=== PATIENT | female | born 1995 | race Caucasian/White ===

== ENCOUNTER 2022-06-06 16:55 | Inpatient (IN) | payer BC, SELFPAY ==
[2022-06-06 17:19] VITALS: BMI 29.0
[2022-06-06 17:24] VITALS: PULSE 95; O2SAT 98
[2022-06-06 17:25] VITALS: BP 126/87; PULSE 102
[2022-06-06 18:19] LABS: SARS PCR* Negative SARS-CoV-2 (Negative)
[2022-06-06] MEDS: miSOPROStoL 25 MCG/0.25 TABLET PO ×3 (18:22→22:30)
[2022-06-06 18:25] VITALS: RESP 16; TEMP 36.6
[2022-06-06 18:28] LABS: Basophils Absolute Auto 0.02 K/uL (0.00-0.30); Basophils Percent Auto 0.2 % (0.0-3.0); Eosinophils Absolute Auto 0.17 K/uL (0.00-0.50); Eosinophils Percent Auto 1.8 % (0.0-7.0); Hematocrit 36.1 % (33.0-51.0); Hemoglobin* 12.8 gm/dL (12.0-16.0); Immature Granulocytes Abs Auto 0.05 K/uL (0.00-0.30); Immature Granulocytes Pct Auto 0.5 %; Lymphocytes Percent Auto 10.4 % (20-44); Mean Corpuscular HGB Conc 36 gm/dL (32-36); Mean Corpuscular Hemoglobin 32 pg (26-34); Mean Corpuscular Volume 89 fL (80-100); Monocytes Percent Auto 6.9 % (0.0-11.0); Neutrophils Percent Auto 80.2 % (42.0-72.0); Platelet Count* 191 K/uL (140-440); RDW Coefficient of Variation % 13.8 % (11.5-15.5); Red Blood Count 4.04 m/uL (4.00-5.20); White Blood Count* 9.53 K/uL (4.50-11.00)
[2022-06-06 18:29] LABS: Slide Review Reflex No
[2022-06-06 19:53] VITALS: BP 133/77; PULSE 83; RESP 20; O2SAT 99
--- NOTE | 2022-06-06 20:35 | P.OBHP_ITS ---
OB - H&P: HPI Labor/Induction History of Present Illness Time Seen by Provider: 20:35 Date Seen: 06/06/22 Chief Complaint: The patient is a 26 year old 1 para 0 at 40.1 weeks gestation by LMP, who presents for induction of labor. Chief complaint: Maternity : 1 Para: 0 Date of last menstrual period: 08/30/21 Estimated date of delivery: 06/06/22 Gestational age based on last menstrual period: 40 Indications for induction: other (evolving cholestasis and marginal cord. ) Narrative: Nicolette Allen is a 26 year old female Patient presented Saturday with extreme itching of palms/feet and PUPPS rash on abdomen. She has known marginal cord insertion (normal growth). Given likely progressing cholestasis and marginal cord, we elected to proceed with induction of labor at term. She denies contractions, leaking of fluid, bleeding. History of Present Dating criteria: based on LMP care: good care Ultrasounds: abnormal US findings Abnormal ultrasound findings: Marginal cord insertion. Monitored growth which has been appropriate. complications comment: Itching concerning for cholestasis, bile acids pending. Medical complications: none Labs Blood type: AB (+) positive Rubella: immune RPR/VDLR: nonreactive GBS status: negative HBsAG: negative Review of Systems Status of ROS: Reports: 10 or more systems reviewed and unremarkable except as noted in History and below Const: Denies: fever, chills or fatigue Eyes: Denies: change in vision or blurry vision ENMT: Denies: neck pain Cardio: Denies: chest pain or shortness of breath with exertion Resp: Denies: shortness of breath GI: Denies: abdominal pain, nausea or vomiting : Denies: blood in urine or vaginal bleeding Musculo: Denies: back pain or neck pain Integ/Breast: Reports: rash, itching and redness Neuro: Denies: headache Endo: Denies: excessive urination or fatigue Meds Home Medications and Allergies Allergies Allergy/AdvReac Type Severity Reaction Status Date / Time No Known Allergies Allergy Verified 06/06/22 17:40 OB - H&P: Exam Physical Exam: Vital signs: Temp Pulse Resp BP Pulse Ox 97.8 F 83 20 133/77 99 06/06/22 18:25 06/06/22 19:53 06/06/22 19:53 06/06/22 19:53 06/06/22 19:53 Constitutional: Constitutional: no acute distress Routine HEENT Exam: Head: Present atraumatic and normal inspection Routine Neck Exam: Neck: Present full ROM Detailed Neck Exam: Thyroids: Thyroid: Present normal Routine Respiratory Exam: Respiratory: Present CTA bilaterally; Absent crackles or rales Routine Cardiovascular Exam: Cardiovascular: RRR, S1 and S2 Detailed Abdominal Exam: Bowel sounds: hypoactive Detailed Labor and Delivery Exam: Patient Gravid: Yes Dilation (cm): 2 Effacement (%): 50 Contraction frequency (min): 5 Tachysystole: No Contraction intensity: Mild Fetus (Single): Heart Rate Baseline: 145 Monitor Accelerations: Present Monitor Decelerations: None Metal Caster Variability: Moderate (6-25) Routine Extremities Exam: Extremities: Present full ROM; Absent calf tenderness Comments: mild edema Routine Skin Exam: Present intact Comments: rash an erythema on abdomen. Routine Neurological Exam: Present alert, oriented X3 and hearing grossly intact OB - Results Labs Labs: Short CBC 06/06/22 Range/Units 18:15 WBC 9.53 (4.50-11.00) K/uL Hgb 12.8 (12.0-16.0) gm/dL Hct 36.1 (33.0-51.0) % Plt Count 191 (140-440) K/uL OB - Problem Based A/P Additional Plan (1) Term : Status: Acute Plan: Here for induction of labor . Elects to start with cytotec for cervical ripening. Plan on Pitocin and AROM tomorrow PRN. (2) Marginal insertion of umbilical cord: Status: Acute Plan: marginal cord insertion, growth has been appropriate. Most recent growth showed 77%ile. (3) Itching: Status: Acute Plan: concerning for cholestasis given itching no hands/soles. Also has pruritic rash on abdomen likely PUPPS. Initial LFTs within normal limits. (4) PUPP (pruritic urticarial papules and plaques of ): Status: Acute Plan - Will allow hydrocortisone for rash prn Delivery/Labor/Induction Plan Plan: induction Induction method: per misoprostol protocol
[2022-06-06] MEDS: HYDROCORTISONE 2.5% CREAM 1 APPLIC TOPICAL (21:30)
[2022-06-06] MEDS: hydrOXYzine pamoate 25 MG CAPSULE 100 MG PO (22:30)
[2022-06-06 23:48] VITALS: BP 131/70; PULSE 79; PULSE 82; RESP 16; TEMP 36.4; O2SAT 98
[2022-06-07] VITALS (57 sets, daily range): BP systolic 103–172; BP diastolic 52–80; PULSE 72–141; RESP 16–20; TEMP 36.8–37.7; O2SAT 96–100
[2022-06-07] MEDS: LACTATED RINGERS 1000 ML 1,000 ML 500 ML IV ×2 (02:42→04:52)
[2022-06-07] MEDS: fentaNYL 100 MCG/2 ML inj IVP ×3 (05:04→07:50)
[2022-06-07] MEDS: LACTATED RINGERS 1000 ML 1,000 ML 125 ML IV ×4 (11:13→19:17)
--- NOTE | 2022-06-07 12:59 | P.OBPN_ITS ---
Subjective Time Seen by Provider: 12:59 Date Seen: 06/07/22 Narrative: Patient received 3 doses of cytotec overnight. She SROM'ed at 0245 and progressed well. She was a reducible anterior lip at around 10 am and started pushing. Had some periods of laboring down/resting. Several positions were tried. Had Dr. Rizo assess to confirm OA position. Discussed options with patient given maternal exhaustion. Elected to have epidural placed and rest/labor down and restart pushing. At this time patient is +2 station. Epidural was placed without incident. Patient was unable to empty bladder prior to placement and will require oneil placement when comfortable. Objective Exam: Painful with contractions. Contractions palpate strong. Baby is 2+ station, small caput. Vital Signs: Last Vital Signs Temp 98.4 F 06/07/22 11:56 Pulse 116 H 06/07/22 12:57 Resp 18 06/07/22 10:32 BP 128/79 06/07/22 12:57 Pulse Ox 100 06/07/22 12:56 Pelvic Exam Dilation (cm): 10 Effacement (%): 100 Station: +2 Comments: small caput Contractions Monitor mode: External Contraction Frequency: 1-2 Contraction pattern: Regular Contraction intensity: Strong/Firm Pitocin Rate (mU/min): 0 Assessment Assessment: active labor Station: +2 Amniotic Membrane Status: SROM Status: Category ll Heart Rate Baseline: 145 Packing Attendant Variability: Moderate (6-25) Monitor Accelerations: Present Monitor Decelerations: Variable Plan Plan: - rest and labor down with epidural - resume pushing when ready - Anticipate
[2022-06-07] MEDS: fentaNYL 250 MCG/5 ML inj 100 MCG EPIDURAL (13:00)
[2022-06-07] MEDS: ROPIVACAINE 0.2% 100 ml 100 ML 12 MG EPIDURAL (13:08)
[2022-06-07] MEDS: LIDOCAINE 2% (PF) 5 ML VIAL EPIDURAL (13:08)
--- NOTE | 2022-06-07 13:15 | P.ANBPRC_ITS ---
PFSH PFS Social History Smoking Status: Never smoker Meds Home Medications and Allergies Home Medications Medication Instructions Recorded Confirmed Type No Known Home Medications 06/07/22 06/07/22 History Allergies Allergy/AdvReac Type Severity Reaction Status Date / Time No Known Allergies Allergy Verified 06/06/22 17:40 Results Labs Labs: Laboratory Results - last 24 hr 06/06/22 06/06/22 17:04 18:15 WBC 9.53 RBC 4.04 Hgb 12.8 Hct 36.1 MCV 89 MCH 32 MCHC 36 RDW Coeff of Cristian 13.8 Plt Count 191 Neut % (Auto) 80.2 H Lymph % (Auto) 10.4 L [place] % (Auto) 6.9 Eos % (Auto) 1.8 Baso % (Auto) 0.2 Neut # (Auto) 7.60 H Lymph # (Auto) 1.00 [place] # (Auto) 0.70 Eos # (Auto) 0.17 Baso # (Auto) 0.02 SARS-CoV-2 (PCR) Negative SARS-CoV-2 Blood Type AB Positive Antibody Screen NEGATIVE Vital Signs Vital Signs: Last Vital Signs Temp 98.4 F 06/07/22 11:56 Pulse 97 06/07/22 13:12 Resp 18 06/07/22 10:32 BP 129/57 L 06/07/22 13:12 Pulse Ox 100 06/07/22 12:56 Weight: 83.971 kg Height: 170.18 cm Anesthesia Procedures Epidural Insertion Patient Location: OB Start Time: 12:30 Stop Time: 13:30 Start Date: 06/07/22 Stop Date: 06/07/22 Reason for Block: primary anesthetic Patient Position: sitting Performed By: Rajesh Arenas Preanesthetic Checklist: IV checked, risks and benefits discussed, surgical consent, monitors and equipment checked, pre-op evaluation, timeout performed and anesthesia consent Prep: chlorhexidine gluconate Monitoring: blood pressure monitoring, property assessment monitor, continuous pulse oximetry and heart rate Approach: midline Vertebral Space: lumbar (1-5) Needle Type: Tuohy needle Injection Technique: continuous catheter Needle gauge: 17 Needle Length (cm): 10 cm Needle Insertion Depth (cm): 6 Catheter Gauge: 19 Catheter Type: multi-orifice Catheter at skin depth (cm): 12 Test Dose Result: negative and lidocaine 1.5% with epinephrine 1 to 200,000 Events: other
[2022-06-07] MEDS: ONDANSETRON 2 MG/ML inj 4 MG IV (15:50)
--- NOTE | 2022-06-07 16:55 | PM.OBCN1 ---
OB - CN: HPI Date of Consult Time Seen by Provider: 16:15 Date Seen: 06/07/22 Patient: Belinda Patient Consult date: 06/07/22 Requesting Physician: Taylor Vasquez MD Primary Care Provider: Taylor Vasquez MD Consult Narrative Reason for consult: arrest of labor Narrative: The patient is a 26 year old G 1 P 0 at 40 2/7 weeks gestation that was admitted to the Center on 06/06/22 for IOL in the setting of suspected ICP, marginal cord insertion, term gestation. Patient admitted and treated with 2 doses of Cytotec and had normal progression of labor. Patient was unmedicated, achieved 10cm cervical dilation at around 10am today, she pushed for about 2 hours after [address] time Dr[address] Vasquez thought called me to assess position and to try a manual version since they believed baby was OT. At that time patient my evaluation showed that baby was OA a bit asynclitic towards maternal right hip. I recommended for them to try epidural for pain management to see if now that baby had turned and with adequate pain management she could relax and push more effectively. Epidural was placed and then she was left to labor down for about 1 hour. She then resumed pushing and pushed for another 1 1/2 hour w/o significant descent. I was called in for re evaluation. I checked patient at around 4:15pm and station unchanged. Recommendation was given for delivery. History of Present Dating criteria: based on LMP care: good care Ultrasounds: normal 1st trimester US and normal mid trimester US complications comment: Itching concerning for cholestasis, bile acids pending. History History 1 Elective abortions Para 0 Spontaneous abortions Hx # Term Pregnancies Ectopic pregnancies Hx # Pregnancies Multiple births Number of Living Children 0 Labs Blood type: AB (+) positive Rubella: immune RPR/VDLR: nonreactive GBS status: negative HBsAG: negative OB Labs: Lab Assessment Start: 06/06/22 17:04 Freq: ONCE Status: Complete Protocol: PC.OBGBS Activity Type Activity Date Activity User E-sign Co-sign Detail Recorded Client Recorded Date Recorded By Document 06/06/22 17:21 DD [id number] 06/06/22 17:21 DD 06/06/22 17:21 Lab Assessment GBS Negative Previous with Invasive GBS No Does Patient Meet Criteria No No Treatment Needed OK Maternal Blood Type AB Maternal RH Factor Positive Evaluate Maternal Rubella Immune Status Immune Hepatitis B Surface Antigen Negative Maternal HIV Status Negative Maternal Syphillis (RPR) Status Negative Are Labs Available Yes PFSH PFSH Social History Smoking Status: Never smoker Meds Home Medications and Allergies Home Medications Medication Instructions Recorded Confirmed Type No Known Home Medications 06/07/22 06/07/22 History Allergies Allergy/AdvReac Type Severity Reaction Status Date / Time No Known Allergies Allergy Verified 06/06/22 17:40 OB - H&P: Exam Physical Exam: Vital signs: Temp Pulse Resp BP Pulse Ox 99.1 F 114 H 16 116/53 L 100 06/07/22 15:37 06/07/22 16:39 06/07/22 14:35 06/07/22 16:39 06/07/22 12:56 Narrative: Cervix: 10cm/100%/vx/-1, caput to +1 NST: 150bpm/positive accelerations/variable decelerations, currently improved but at 4pm these were deep and repetitive/minimal variability/tachysystolic. OB - Results Labs Labs: Short CBC 06/06/22 Range/Units 18:15 WBC 9.53 (4.50-11.00) K/uL Hgb 12.8 (12.0-16.0) gm/dL Hct 36.1 (33.0-51.0) % Plt Count 191 (140-440) K/uL OB - CN: A/P Assessment and Plan (1) Term : Status: Acute (2) Marginal insertion of umbilical cord: Status: Acute (3) Itching: Status: Acute (4) PUPP (pruritic urticarial papules and plaques of ): Status: Acute Plan 26 y/o G1 with IUP at 40 2/7 weeks with arrest of descent. Recommendation given for section at this time. Discussed how procedure is performed. Discussed risks of surgery such as bleeding and needing blood transfusions, infection, damage to nearby organs, blood clots. Discussed interventions that we do to decrease risks such as prophylactic antibiotics, compression stockings etc... Discussed how recovery is different between a vaginal vs a delivery. Informed consent signed and will proceed with surgery as soon as anesthesia team arrives to hospital.
--- NOTE | 2022-06-07 17:19 | PM.OBPNL ---
Subjective Time Seen by Provider: 16:00 Date Seen: 06/07/22 Narrative: Patient pushed x 2.5 hours without making significant change. We placed epidural, labored down x 1 hour and then resumed pushing. Patient pushed for an additional 1.5 hours without significant change despite several position changes. OB was consulted and recommended proceeding with primary due to arrest of descent. Please see their note for details. Objective Vital Signs: Last Vital Signs Temp 99.7 F H 06/07/22 17:02 Pulse 111 H 06/07/22 17:14 Resp 18 06/07/22 17:02 BP 131/71 06/07/22 17:14 Pulse Ox 100 06/07/22 12:56 Pelvic Exam Dilation (cm): 10 Effacement (%): 100 Station: +2 Contractions Monitor mode: External Contraction pattern: Regular Contraction intensity: Strong/Firm Pitocin Rate (mU/min): 0 Assessment Assessment: active labor Station: +2 Amniotic Membrane Status: SROM Status: Category ll Heart Rate Baseline: 145 Monitor Accelerations: Present Monitor Decelerations: Variable Plan Plan: - proceed with at this time
[2022-06-07] MEDS: CEFAZOLIN 2 GM INJ IVP (17:29)
[2022-06-07] MEDS: TRANEXAMIC ACID 100 MG/ML INJ 1000 MG IV (17:30)
[2022-06-07] MEDS: AZITHROMYCIN 500 MG in 0.9 % SODIUM CHLORIDE 250 ml 250 ML 255 MG IVPB (17:34)
[2022-06-07] MEDS: miSOPROStoL 800 MCG/4 TABLET PR (17:49)
--- NOTE | 2022-06-07 18:22 | PM.OBPRCCS ---
Procedure Pre-op/Post-op diagnoses: Pre-Op/Post-Op Diagnoses Pre Operative Diagnosis: 1. Intrauterine at 40 2/7 weeks 2. Arrest in descent 3. Suspected ICP Post Operative Diagnosis: 1. Same, now delivered 2. PPH, uterine atony Procedure Done: only Procedure Details: Procedures Operation Date: 06/07/22 17:45 Actual Procedure Side Surgeon p Section Saundra Ordonez MD Estimated blood loss (mL): 1,340 Disposition: floor Anesthesia type: Epidural Complications: hemorrhage due to uterine atony Narrative: NAME OF PROCEDURE: Primary low transverse section. ANESTHESIA: Epidural COMPLICATIONS: PPH, uterine atony QUANTITATIVE BLOOD LOSS: 1340mL DRAINS: Dooley to gravity. FINDINGS: Live-born female infant, vertex presentation, Apgars 9 and 9 at 1 and 5 minutes respectively. weight 8 lb 14 oz. PROCEDURE: After obtaining informed consent, the patient was taken to the operating room where epidural anesthesia was confirmed to be adequate. She was prepared and draped in the normal sterile fashion in the dorsal supine position with a leftward tilt. A Pfannenstiel skin incision was made with a scalpel about 2 cm above symphysis pubic bone, 8-10 cm in length. This incision was carried down to the underlying layer of fascia with the Bovie and scalpel. The fascia was incised in the midline and the incision extended laterally. The rectus muscles were then in the midline. The Jaya O retractor was then placed into the incision. The lower uterine segment was then incised in a transverse fashion with the scalpel. Upon entry into the uterus, clear amniotic fluid was noted. The uterine incision was extended cephalo caudally with blunt finger fractionation. head was brought up to incision and with fundal pressure head delivered and there was a nuchal cord that was reduced, followed by delivery of the rest of the body atraumatically. The cord was doubly clamped and cut after about 30 seconds of delayed cord clamping and the infant was handed off the field to warm for evaluation. The placenta was delivered spontaneously with umbilical cord traction and fundal massage. The uterus was cleared of all clots and debris. Uterine atony identified and treated with: 1g of TXA, 1 dose of Hemabate and Methergine and 800mcg of rectal Cytotec. The uterine incision was reapproximated in a running locking fashion with a 0 Vicryl suture. A 2nd layer of the same suture was used to imbricate in horizontal fashion. There was some bleeding noted from the left corner of incision and utilizing Chromic 2-0 in a figure of 8 hemostasis was achieved. The gutters were inspected and cleared of blood clot. All instruments and retractors were removed. The subfascial tissues were carefully inspected and hemostasis assured. The fascia was reapproximated in a running fashion with a looped 0 Vicryl suture. The subcutaneous tissues were inspected and hemostasis was assured. The subcutaneous fat layer was reapproximated with interrupted sutures of 3-0 Vicryl. The skin was closed in a subcuticular fashion with 4-0 Monocryl. LiquiBand and dressing were applied. The patient tolerated the procedure well. Sponge, lap, needle, and instrument counts were reported as correct x2. The patient was taken to the recovery room, awake, and in stable condition. She did receive 2 grams of IV Ancef and 500mg of Azithromycin preoperatively.
[2022-06-07] MEDS: KETOROLAC 30 MG/ML inj IVP (18:42)
[2022-06-07] MEDS: LOPERAMIDE HCL 2 MG CAPSULE 4 MG PO (18:45)
--- NOTE | 2022-06-07 18:56 | P.NB_ITS ---
Nerve Block Nerve Block Time Seen by Provider: 18:35 Date Seen: 06/07/22 Type of block requested by surgeon for post-operative analgesia: TAP Side: bilateral Time out performed: Yes Verification of patient name: Yes Verification of date of : Yes Site marking: not applicable Name of person performing procedure: nick Continuous monitoring Was continuous monitoring of O2 sat, B/P, cardiac rehabilitation specialist, recorded every 15 minutes?: Yes Procedure Checklist: sterile prep, needles and gloves Ultrasound guided. Images saved: Yes Medications given in 5ml increments after negative aspiration: Marcaine %: 0.25 mL: 30 Needle gauge: 20 and Exparel mL: 10 Patient tolerated procedure well: Yes Block Charges Block Charge (with Pro Fee): TAP Bilateral Use of Ultrasound Machine for Block: Yes- US Guidance/pain block
--- NOTE | 2022-06-07 18:57 | W.ANESCHARGE ---
Anesthesia Charges Start Date/Time Anesthesia Start Date: 06/07/22 Anesthesia Start Time: 17:19 Stop Date/Time Anesthesia Stop Date: 06/07/22 Anesthesia Stop Time: 18:43 Summary Emergency: BINDING MACHINE OPERATOR
[2022-06-07] MEDS: diphenhydrAMINE 50 MG/ML inj 12.5 MG IVP ×2 (22:35→22:47)
[2022-06-08] VITALS (23 sets, daily range): BP systolic 100–116; BP diastolic 61–98; PULSE 80–110; RESP 14–18; TEMP 36.8–37.1; O2SAT 95–98
[2022-06-08] MEDS: hydrOXYzine pamoate 25 MG CAPSULE 100 MG PO (00:39)
[2022-06-08] MEDS: KETOROLAC 30 MG/ML inj IVP ×4 (00:40→19:59)
[2022-06-08] MEDS: ACETAMINOPHEN 500 MG TABLET 1000 MG PO (03:40)
[2022-06-08 05:41] LABS: Hemoglobin* 8.4 gm/dL (12.0-16.0)
--- NOTE | 2022-06-08 07:48 | PM.OBPNCS1 ---
OB - PN: A/P Assessment and Plan (1) Term : Status: Acute (2) Marginal insertion of umbilical cord: Status: Acute (3) Itching: Status: Acute (4) PUPP (pruritic urticarial papules and plaques of ): Status: Acute Plan Plan: routine postop care Comments: Assessment/Plan G 1 P 1 status post primary complicated by PP hemorrhage. 1. ?Continue route PP cares 2. ?. ?May see if desired 3. ?Anticipate discharge home tomorrow or the following day per pt preference 4. ?Acute anemia. ?Iron supplement ordered 5. Itching, likely r/t medications given in OR. -may have Vistaril PRN for itching 6. Labia extremely edematous bilaterally. Likely r/t prolonged pushing and laboring down. -Will continue with catheter at this time. Reassess this afternoon. Encouraged to keep ice packs on. OB - PN: Subj Subjective Time Seen by Provider: 07:48 Date Seen: 06/08/22 Patient comments: no complaints, pain well controlled, tolerating diet and flatus present [place] status: doing well feeding status: exclusively Narrative: Nicolette is a 26 y.o. G 1 P 1 who was admitted to [facility] & [facility] for IOL for cholestasis/PUPPS. ?She had an complicated by PP hemorrhage. ? The patient feels well overall. She is having a fair amount of itching. This feels different than what she was feeling in - feels all over. ?Benydryl and vistrail given last night, only the Vistaril provided relief. The pain is well controlled with current medications. ?She has no new complaints aside from the itcing. ?She is breast feeding and reports things are overall going well, though th ebaby was sleepy with the last feed.? the patient has done well.? Vitals have been stable.? She has remained afebrile.? Has a good appetite, is tolerating a general diet. ?She has a oneil catheter in place, and the nurses are requesting to continue this r/t edema of the labia.? She is passing gas and has not had a bowel movement.? She has not been up ambulating.? Has Small amount of rubra lochia. OB - PN: Obj Exam Physical Exam: Vital signs: Temp Pulse Resp BP Pulse Ox O2 Del Method 98.2 F 80 16 108/98 H 97 Room Air 06/08/22 07:33 06/08/22 07:33 06/08/22 07:33 06/08/22 07:33 06/08/22 07:33 06/08/22 07:33 Narrative: VSS. Afebrile GENERAL APPEARANCE: ?normal affect, alert, no distress MOOD: ?appropriate HEENT: normocephalic, neck supple, full ROM CHEST: ?Symmetrical chest wall movement. ?Normal respiratory effort. ?Clear to auscultation HEART: ?regular rate and rhythm ABDOMEN: ?soft, non-tender. Uterine fundus is firm, at Umbilicus, Midline and is appropriate for the stage of recovery. ?Bowel sounds present. : Labia extremely edematous bilaterally EXTREMITIES: ?normal and +1 edema SKIN: warm, dry. Dressing on, clean/dry/intact. No signs of infection noted. OB - PN: Obj Data Labs Labs: Laboratory Results - last 24 hr 06/08/22 05:35 Hgb 8.4 L
--- NOTE | 2022-06-08 12:05 | SUR.PHASEI ---
Late entry for primary nurse. Verified time out of PACU with Alanna Port. Fco Arenas INTELLIGENCE SPECIALIST, agreed with 20 min recovery time. Patient met all milestones. Jason PETTIT
[2022-06-08] MEDS: SODIUM CHLORIDE 0.9 % (FLUSH) 10 ML SYRINGE IVF (20:00)
[2022-06-08] MEDS: LANOLIN CREAM 1 APPLIC TOPICAL (21:35)
[2022-06-09] MEDS: ACETAMINOPHEN 500 MG TABLET 1000 MG PO ×2 (03:47→23:30)
[2022-06-09] MEDS: IBUPROFEN 600 MG TABLET PO ×3 (07:34→20:38)
[2022-06-09] MEDS: FERROUS SULFATE 325 MG TABLET PO (07:35)
--- NOTE | 2022-06-09 07:46 | P.OBPN_ITS ---
OB - PN: A/P Assessment and Plan (1) Term : Status: Acute (2) Marginal insertion of umbilical cord: Status: Acute (3) Itching: Status: Acute (4) PUPP (pruritic urticarial papules and plaques of ): Status: Acute Plan day: 2 Plan: routine postop care Comments: Assessment/Plan G 1 P status post primary , complicated by PP hemorrhage. 1. ?Continue routine PP cares 2. ?. ?Having some difficulties and supplementing with donor milk as needed. May see if desired 3. ?Anticipate discharge home tomorrow. 4. ?Acute anemia. ?Denies any dizziness w/ ambulation. Iron supplement ordered yesterday 5. Edematous labia. Catheter has remained in placed since yesterday. Will remove today and monitor for ability to void. OB - PN: Subj Subjective Time Seen by Provider: 07:46 Date Seen: 06/09/22 Interval history: Nicolette is a 26 y.o. who was admitted to [facility] & [facility] for IOL for cholestasis. ?She had an which was complicated by PP hemorhage. ? Patient comments: no complaints, pain well controlled, tolerating diet and flatus present [place] infant status: [place] feeding status: exclusively (supplementing with donor milk as needed) Narrative: The patient feels well. ?The pain is well controlled with current medications. ?She has no new complaints. ?She is breast feeding and reports things have been somewhat of a struggle.? Baby has been somewhat sleepy, and not latching well. She has some trauma to the right nipple. She has been supplementing with donor milk. the patient has done well.? Vitals have been stable.? She has remained afebrile.? Has a good appetite, is tolerating a general diet. ?Likely r/t pushing and laboring down, her labia are quite swollen. The edema is somewhat decreased since yesterday. Her oneil has remained in placed r/t to this. She is passing gas and has not had a bowel movement.? She did ambulate a few times yesterday and denies any dizziness.? Has Small amount of rubra lochia. OB - PN: Obj Exam Physical Exam: Vital signs: Temp Pulse Resp BP Pulse Ox O2 Del Method 98.8 F 100 18 112/71 98 Room Air 06/08/22 22:25 06/08/22 22:25 06/08/22 22:25 06/08/22 22:25 06/08/22 22:25 06/08/22 22:25 Narrative: VSS. Afebrile GENERAL APPEARANCE: ?normal affect, alert, no distress MOOD: ?appropriate HEENT: normocephalic, neck supple, full ROM CHEST: ?Symmetrical chest wall movement. ?Normal respiratory effort. ?Clear to auscultation HEART: ?regular rate and rhythm ABDOMEN: ?soft, non-tender. Uterine fundus is firm, at Umbilicus, Midline and is appropriate for the stage of recovery. ?Bowel sounds present. : Labia very edematous, small decreased since yesterday EXTREMITIES: ?normal and +1 edema SKIN: warm, dry. Dressing on, clean/dry/intact. No signs of infection noted. Dressing to be removed today.
[2022-06-09 07:54] VITALS: BP 117/73; PULSE 80; RESP 16; TEMP 36.9; O2SAT 97
[2022-06-09] MEDS: DOCUSATE SODIUM 100 MG CAPSULE PO (14:33)
[2022-06-09 16:30] VITALS: BP 115/76; PULSE 79; RESP 16; TEMP 36.8; O2SAT 97
[2022-06-09 23:30] VITALS: BP 115/72; PULSE 88; RESP 18; TEMP 36.5; O2SAT 97
[2022-06-10] MEDS: IBUPROFEN 600 MG TABLET PO ×2 (02:27→09:16)
[2022-06-10 09:07] VITALS: BP 115/72; PULSE 86; RESP 16; TEMP 36.9; O2SAT 98
[2022-06-10] MEDS: FERROUS SULFATE 325 MG TABLET PO (09:10)
--- NOTE | 2022-06-10 09:29 | P.DS_ITS ---
DS: Providers Provider Date Seen: 06/10/22 Date of admission: 06/06/22 16:55 Primary care physician: Taylor Vasquez MD Admitting Clinician: Taylor Vasquez MD Attending Physician on discharge: Saundra Ordonez MD DS: Diagnosis Discharge Diagnosis (1) hemorrhage: Status: Acute (2) Anemia due to acute blood loss: Status: Acute (3) S/P primary low transverse : Status: Acute Problem details: Arrest of descent Exam Narrative: Exam Narrative: GENERAL APPEARANCE: Pleasant, , well-groomed woman in no acute distress. VITAL SIGNS: as noted in nursing notes HEAD: Normocephalic, atraumatic. THYROID: no masses, nodularity, tenderness or enlargement. LUNGS: Clear to auscultation bilaterally without wheezes, rales or rhonchi. HEART: Regular rate and rhythm with normal S1 and S2. No gallop, rub or murmur. ABDOMEN: Gravid. Soft, nontender, nondistended, with normal bowels sounds throughout. Fundus firm 1 cm below the umbilicus. INCISION: Clean, dry and intact with sutures and skin adhesive. EXTREMITIES: No cyanosis, , pain or clubbing. No varicosities. Edema: 3+/3 to the mid-rivera bilaterally (normal post ) NEUROLOGIC: Normal gait and balance. Normal deep tendon reflexes at bilateral patella 2+/2, equal without clonus. PSYCHIATRIC: alert and oriented x3. Normal speech pattern, eye contact and affect. SKIN: Warm, dry, and well perfused. Good turgor. No lesions, nodules or rashes. Const: Vital Signs, click to edit/add: Vital Signs - 24 hr 06/09/22 16:30 06/09/22 23:30 06/10/22 09:07 Temperature 98.3 F 97.7 F 98.4 F Pulse Rate [Right Pulse Oximeter] 79 Pulse Rate [Right] 88 86 Respiratory Rate 16 18 16 Blood Pressure [Ri ght Arm] 115/76 115/72 115/72 Pulse Oximetry 97 97 98 Oxygen Delivery Me thod Room Air Room Air Room Air OB - DS: Summary Hospital Course Hospital Course: The patient is a 26 year old G 1 P 0 now 1 at 40 and 2/7 weeks gestation that was admitted to the Center on 06/06/22 for induction of labor due to cholestasis of and marginal umbilical cord insertion. She pushed for >4hours and had a primary LTCS for arrest of descent complicated by by a hemorrhage due to uterine atony. She delivered a viable female . She is breast feeding. the patient has done well. She has asymptomatic anemia being treated with iron supplementation. Peripartum Data Procedures: Procedures Operation Date: 06/07/22 17:45 Actual Procedure Side Surgeon p Section Saundra Ordonez MD Infant Gender: Female Infant Discharge Plan: Home Time Spent with Patient Time attestation: Total time spent providing and/or coordinating discharge services: Time spent: Less than 30 minutes Discharge Plan Discharge Disposition: Home, Self-Care Date of Admission: 06/06/22 16:55 Primary Care Provider: Taylor Vasquez Condition: Stable Anticipated Discharge Date/Time: 06/10/22 12:30 Discharge Medications: New docusate sodium [DOK] 100 mg tablet 100 mg PO BID PRNQty: 100 0RF oxycodone 5 mg tablet 5 mg PO Q8H PRN (Reason: pain) Qty: 21 0RF ibuprofen 600 mg tablet 600 mg PO QID PRNQty: 30 0RF ferrous sulfate 324 mg (65 mg iron) tablet,delayed release (DR/EC) 324 mg PO DAILY Qty: 60 0RF Discharge Orders: Discharge Order (Routine); Ordered 06/10/22 Ordered By: Kady Israel Patient Education: (DC) Additional Instructions: ACTIVITY RESTRICTIONS: * Nothing vaginally for 6 weeks: no tampons/intercourse * No driving while taking narcotic pain medication during the day. 1-2 weeks. Okay to be the passenger anytime. * Lifting restriction: Maximum of 20 pounds for 6 weeks. * High impact or core exercises: 6 weeks. * Submerge the incision in water (bath/pool/lopez): 2 weeks. * Off of work/school for a minimum of 8 weeks NO RESTRICTIONS for: * Walking * Going up/down stairs * Showering Symptoms to report to doctor: -Bleeding that saturates more than one pad per hour ?-Passing clots larger than the size of a golf ball ?-Pain not relieved by prescribed medication ?-Fever above 100.4 degrees Fahrenheit ?-A foul vaginal odor ?-Difficulty in emotions, mood and functions ?-Thoughts of hurting yourself and/or ?-Painful, reddened area in your breast ?-Any drainage, redness or tenderness in your IV/epidural site ?-Severe headache that doesn't improve after taking medications ?-Changes in vision, including temporary loss of vision, blurred vision, and/or light sensitivity ?-Upper abdominal pain (usually under ribs on the right side) ?-Decrease in urination or painful, frequent urinating ?-Chest pain ?-Shortness of breath ?-Tenderness or pain with redness and/swelling in the calf(s) of your leg FOLLOW-UP APPOINTMENTS: 1. Dr. [facility] [place] for an incision. 2. A 6 week visit for an annual physical exam: with Dr. Taylor Vasquez. consultation services are available to all mothers and babies for the first year after delivery.? To make an appointment, please call [phone]. Discharge Diet: Regular Follow Up Appointments: Saundra Ordonez MD [Staff Physician] - Taylor Vasquez MD [Primary Care Provider] - Forms: MyHealth Info Instructions
== END 2022-06-10 12:00 | disposition home or self-care (01) | DRG 540 ==
PROVIDERS: Admitting Provider Family Medicine; PCP Family Medicine; Visit Provider Obstetrics & Gynecology
PROC: 10D00Z1 Extraction of Products of Conception, Low, Open Approach (ICD-10-PCS; CPT 59514; principal; 2022-06-07 17:30)
DX: O26.86 Pruritic urticarial papules and plaques of pregnancy (PUPPP) (principal); O32.4XX0 Maternal care for high head at term, not applicable or unspecified; O69.89X0 Labor and delivery complicated by other cord complications, not applicable or unspecified; O72.1 Other immediate postpartum hemorrhage; O90.81 Anemia of the puerperium; D62 Acute posthemorrhagic anemia; Z3A.40 40 weeks gestation of pregnancy; Z37.0 Single live birth
CPT/HCPCS: 01967; 01968; 36415; 59200; 76942; 85018; 85025; 86850; 86900; 86901; 87635; 88307; 99140; A9270; C9290; J0456; J0690; J1100; J1200; J1885; J2210; J2274; J2370; J2405; J2590; J2765; J2795; J3010; J3490; J7050; J7120

== ENCOUNTER 2022-06-29 09:36 | Outpatient (CLI) | payer BC, SELFPAY ==
--- NOTE | 2022-06-29 14:45 | P.LACCB_ITS ---
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, social work case manager at the [employer] Delivery Information Delivery type: Primary C/S; Labored (FTP, cholestasis) Weeks Gestation: 40.2 Gestational Age: AGA Weight: 4.026 kg Discharge Weight: 3.572 kg Baby's Information Baby's Age at Visit: 3 weeks Baby's Provider or Clinic: [facility] Jaundice: No Reason for Consult Reason for Consult: slow weight gain, concern for transfer/supply Past Experience Past Experience: No Current Frequency of Day Feedings: every 1 - 2 hours Frequency of Night Feedings: every 2 - 3 hours Both Breasts: Yes Suck: strong Latch: fairly wide Length of Time: 20 minutes/side Pumping Pumping: Yes (pumps once/day with her electric pump and uses the Haakaa twice/day) Quantity Pumped: 1 - 4 oz total each time Supplementing EMB Supplement: No Formula Supplement: No Baby Elimination Number of Wet Diapers a Day: about 6 Number of BM a Day: 2 - 3; yellow and seedy Breast/Nipple Condition Breast Information: WNL Engorgement: No Sore Nipples: No Onsite Pre-Feed weight: 3.926 kg Post-Feed weight: 3.984 kg Milk Transferred (mL): 58 Assessments/Interventions Assessments/Interventions: Met with mom and this now 3 week old ex- term AGA baby for consult.? Mom reports baby has had slow weight gain and she's unsure about how much baby is getting or if her supply is low.? She reports baby has been cluster feeding during the day recently and will nurse every 1 - 2 hours.? She nurses a little less frequently overnight, usually every 2 - 3 hours.? Mom offers both sides and baby nurses about 20 minutes/side with stimulation.? Mom pumps once/day with her Tracey Stride getting 2 - 4 oz total and uses her Haakaa while baby nurses twice/day getting 1 - 3 oz total.? She hasn't supplemented baby for the last two weeks but states she has slow flow nipples for the bottle and baby was taking 1 oz in about 15 minutes when she was supplementing in that first week. ? Breasts WNL- symmetrical with rounded lower quadrants, intramammary distance is < 1.5 inches.? Nipples are everted and don't flatten or retract on compression; no damage noted.? Baby has only gained 42 grams (14 grams/day) since her PCP visit on 06/26.? Mom denies any caput/cephalohematoma at delivery.? States baby has equal ROM when turning her head and moving her extremities.? Baby's palate is a little high, but her upper and lower frenulum appear to be WNL.? She has a strong suck on a finger.? The tongue easily extends past the gum line and has good lateral movement to the left with some canoeing to the right.? Baby doesn't want to open her mouth very wide and does some tongue thrusting while sucking the finger in. Mom latched baby in the football hold on the left and baby did the same thing to mom- kind of slurped or sucked her in, rather than opening wide so mom could get a deep latch.? Baby's lips were flanged and mom was comfortable, stating it felt like she was back on the breast.? Baby nursed with some stimulation for about 20 minutes, then came off on her own (nipple was flat).? Mom offered the right side and this time practiced pointing her nipple to baby's nose.? Baby still didn't open wide but mom reported the initial latch was more comfortable and she thought baby had a slightly deeper latch.? Mom practiced breast compression on this side.? Baby nursed about 15 minutes with stimulation, then came off on her own (this nipple was also flat).? She transferred 58 ml. Plan: 1. Mom to continue nursing baby ALD (not letting her go past three hours for now).? Suggested she offer both sides like she has been, but practice nipple to nose to see if that helps deepen the latch.? Use breast compression to keep baby active at the breast and can also switch sides a few times during the feeding. 2. Supplement baby with 1 - 2 oz EBM after daytime feedings (OK to just breastfeed overnight).? We discussed paced feeding but with the nipple she's using it's probably not necessary. 3. Stop using the Haakaa for now and instead pump TID with her electric pump. 4. Suggested jaw massage before nursing and this was demonstrated.? Also gave handout on local body work therapists that could help loosen any tight areas in baby (and mom). 5. Will f/u in on 07/06 for a pre and post feeding weight. Meds Home Medications and Allergies Allergies Allergy/AdvReac Type Severity Reaction Status Date / Time No Known Allergies Allergy Verified 06/20/22 10:01
== END 2022-06-29 09:37 | disposition home or self-care (01) ==
LOC: OB LAC 09:36
PROVIDERS: PCP Family Medicine; Visit Provider Family Medicine
DX: Z39.1 Encounter for care and examination of lactating mother (principal)
CPT/HCPCS: 99211